=== PATIENT | female | born 1990 | race Caucasian/White ===

== ENCOUNTER 2016-06-07 06:41 | Emergency (ER) | payer MEDICAID ==
[~2016-06-07] VITALS: Ht 157.5 cm; Wt 78.0 kg
[~2016-06-07 06:41] MED LIST: PREN1TAB49 PO
[2016-06-07 06:45] VITALS: Ht 157.5 cm; Wt 78.0 kg
[2016-06-07] MEDS ORDERED: ACETAMINOPHEN 325 MG TAB PO STA (07:05)
[2016-06-07 07:14] LABS: URINE BLOOD (Dip) POC 2+ (NEGATIVE)
--- NOTE | 2016-06-07 07:14 | ERD ---
ER Documentation Chief Complaint Date/Time DATE: 06/07/16 TIME: 07:09 Chief Complaint pt bib self with c/o vag bleeding since this am , 14wks preg HPI This is a 25-year-old female, A0, presenting to emergency department for vaginal bleeding and pelvic cramping starting today. Patient states when she got up this morning she started having vaginal bleeding like her normal menstrual period. No clots or tissue passed. Last menstrual period February. Patient states she is about 14 weeks . No dysuria or hematuria. Has not had any complications with her last 2 births. Patient' OB/ MAIL LIST PROCESSOR is Dr. Trotter. ROS All systems reviewed and are negative except as per history of present illness. Medications Home Meds Active Scripts Acetaminophen* (Tylenol*) 325 Mg Tablet, 1 TAB PO Q6 Y for PAIN AND OR ELEVATED TEMP, #20 TAB Prov:DAVID CLARK NP 06/07/16 Nitrofurantoin Monohyd Macrocr* (Macrobid*) 100 Mg Capsr, 100 MG PO BID for 5 Days, CAP Prov:DAVID CLARK NP 06/07/16 Reported Medications Vits W-Ca,Fe,Fa(<1MG) () 1 Tab Tablet, 1 TAB PO 07/06/11 Allergies Allergies: Coded Allergies: No Known Drug Allergy (Verified Allergy, Mild, 06/07/16) PMhx/Soc Medical and Surgical Hx: pt denies Medical Hx, pt denies Surgical Hx Hx Alcohol Use: No Hx Substance Use: No Hx Tobacco Use: No Smoking Status: Never smoker Physical Exam Vitals Vital Signs Date Time Temp Pulse Resp B/P Pulse Ox O2 Delivery O2 Flow Rate FiO2 06/07/16 06:45 97.9 72 16 123/67 99 Physical Exam Const: No acute distress, alert Head: Atraumatic Eyes: Normal Conjunctiva ENT: Normal External Ears, Nose and Mouth. Neck: Full range of motion..~ No meningismus. Resp: Clear to auscultation bilaterally Cardio: Regular rate and rhythm, no murmurs Abd: Soft, non tender, non distended. Normal bowel sounds Skin: No petechiae or rashes Back: No midline or flank tenderness Ext: No cyanosis, or edema Neur: Awake and alert Psych: Normal Mood and Affect Result Diagram: 06/07/16 0714 Results 24 hrs Laboratory Tests Test 06/07/16 07:14 06/07/16 07:16 Basophils # 0.010^3/ul Basophils % 0.3% Beta HCG, Quantitative 436042.0mIU/ml Eosinophils # 0.510^3/ul Eosinophils % 5.3% Hematocrit 36.0% Hemoglobin 11.6g/dl Lymphocytes # 1.910^3/ul Lymphocytes % 18.6% Mean Corpuscular Hemoglobin 19.8pg Mean Corpuscular Hemoglobin Concent 32.2g/dl Mean Corpuscular Volume 61.3fl Mean Platelet Volume 10.0fl Monocytes # 0.510^3/ul Monocytes % 5.1% Neutrophils # 7.210^3/ul Neutrophils % 70.3% Nucleated Red Blood Cells # 0.010^3/ul Nucleated Red Blood Cells % 0.0/100WBC Platelet Count 09123^3/UL Red Blood Count 5.8710^6/ul Red Cell Distribution Width 19.4% White Blood Count 10.310^3/ul Bedside Urine Blood 2+ Bedside Urine Glucose (UA) Negative Bedside Urine Ketones (LAB) Negative Bedside Urine Leukocyte Esterase (L 1+ Bedside Urine Nitrite (LAB) Positive Bedside Urine Protein (LAB) 1+ Bedside Urine pH (LAB) 7.0 Current Medications Medications (Trade) Dose Ordered Sig/Rosy Route PRN Reason Start Time Stop Time Status Last Admin Dose Admin Acetaminophen (Tylenol Tab) 650 mg ONCE STAT PO 06/07/16 07:05 06/07/16 07:07 DC 06/07/16 07:09 Procedures/MDM ED COURSE: The patient was stable throughout ED course. I kept the patient and/or family informed of laboratory and diagnostic imaging results throughout the ED course. Tylenol given Laboratory CBC hemoglobin 11.6, hematocrit 36.0 Beta-hCG 100,960.0 type and Rh factor O+ Urine dip 1+ leukocyte esterase, positive nitrate, 2+ blood, 1+ protein Imaging OB ultrasound Patient: [place] : 1990 Age: 25 Sex: F MR #: [id number] DOS: 06/07/16 0705 Ordering MD: DAVID CLARK NP Location: [facility] Room/Bed: PROCEDURE: ULTRASOUND OBSTETRICAL CLINICAL INDICATION: 25-year-old female with vaginal bleeding. TECHNIQUE: Multiple sonographic images of the pelvis were obtained. The images were reviewed on a PACS workstation. COMPARISON: None. FINDINGS: There is a single intrauterine gestation. The mean sac diameter is 6.19 cm. There is a pole present with a crown-rump length of 6.29 cm. This yields an estimated gestational age of 12 weeks and 5 days. The estimated date of delivery is December 15, 2016. Cardiac activity is present at 147 beats per minute. There is no evidence for free fluid. The ovaries were not visualized bilaterally. No adnexal masses are noted. IMPRESSION: 1. Single viable intrauterine gestation of approximately 12 weeks 5 days. The estimated date of delivery is December 15, 2016. 2. The ovaries were not visualized. MDM: This is a 25-year-old female presenting to the emergency department for vaginal bleeding and pelvic cramping 1 day. Patient believes she is 14 weeks with last menstrual period 02/16/2016. Patient is a A0. No history of miscarriage or . Labs show hemoglobin 11.6, hematocrit 36.0. Urine is positive for infection. OB ultrasound reviewed by radiologist as single viable intrauterine gestation of approximately 12 weeks 5 days. The estimated date of delivery is December 15, 2016. The ovaries were not visualized. Patient remained hemodynamically stable. No fevers or chills. Patient states vaginal bleeding has decreased since she has been in the ER. Differential diagnosis includes but not limited to spontaneous , ectopic , subchorionic hemorrhage, fibroids, UTI and ovarian cyst. Patient is appropriate for outpatient management will be given prescription for Macrobid and Tylenol. Instructed patient to follow-up with CERTIFIED ALCOHOL COUNSELOR in the next 24-48 hours for reassessment and additional management. Copies of lab tests and ultrasound provided for patient. Return to ED for any high fever, chest pain, difficulty breathing, shortness breath, wheezing, vomiting, diarrhea, abdominal pain or any new or worsening symptoms. Patient verbalizes understanding. All questions answered at discharge. Departure Diagnosis: Primary Impression: Vaginal bleeding in patient at less than 20 weeks gestation Condition: Stable DAVID CLARK NP Jun 07, 2016 07:14
[2016-06-07 07:23] LABS: ADD SCAN DIFF NO
[2016-06-07 07:28] LABS: BASOPHILS % 0.3 % (0.0-2.0); EOSINOPHILS # 0.5 10^3/ul (0.0-0.5); EOSINOPHILS % 5.3 % (0.0-7.0); HEMOGLOBIN 11.6 g/dl (12.0-16.0); LYMPHOCYTES # 1.9 10^3/ul (0.8-2.9); LYMPHOCYTES % 18.6 % (15.0-51.0); MEAN CORPUSCULAR HEMOGLOBIN 19.8 pg (29.0-33.0); MEAN CORPUSCULAR HGB CONC 32.2 g/dl (32.0-37.0); MEAN CORPUSCULAR VOLUME 61.3 fl (82.0-101.0); MONOCYTE # 0.5 10^3/ul (0.3-0.9); MONOCYTES % 5.1 % (0.0-11.0); NEUTROPHIL # 7.2 10^3/ul (1.6-7.5); NEUTROPHILS % 70.3 % (39.0-77.0); PLATELET COUNT 367 10^3/UL (140-415); RED BLOOD COUNT 5.87 10^6/ul (4.20-5.40); RED CELL DISTRIBUTION WIDTH 19.4 % (11.5-14.5); WHITE BLOOD COUNT 10.3 10^3/ul (4.8-10.8)
--- NOTE | 2016-06-07 07:40 | RADRPT ---
PROCEDURE: ULTRASOUND OBSTETRICAL CLINICAL INDICATION: 25-year-old female with vaginal bleeding. TECHNIQUE: Multiple sonographic images of the pelvis were obtained. The images were reviewed on a PACS workstation. COMPARISON: None. FINDINGS: There is a single intrauterine gestation. The mean sac diameter is 6.19 cm. There is a pole p resent with a crown-rump length of 6.29 cm. This yields an estimated gestational age of 12 weeks and 5 days. The estimated date of delivery is December 15, 2016. Cardiac activity is present at 147 be ats per minute. There is no evidence for free fluid. The ovaries were not visualized bilaterally. N o adnexal masses are noted. IMPRESSION: 1. Single viable intrauterine gestation of approximately 12 weeks 5 days. The estimated date of de livery is December 15, 2016. 2. The ovaries were not visualized. .Edgardo Montemayor MD, Date Time Electronically viewed and signed by .Edgardo Montemayor MD, on 06/07/2016 07:39 .M/
[2016-06-07] MEDS ORDERED: ACET325T33 PO (08:37)
[2016-06-07] MEDS ORDERED: NITR-58 PO (08:37)
== END 2016-06-07 08:43 | disposition home or self-care (01) ==
LOC: FTE 06:41
DX: O20.9 Hemorrhage in early pregnancy, unspecified (principal); R10.2 Pelvic and perineal pain; Z3A.12 12 weeks gestation of pregnancy
CPT/HCPCS: 36415; 76801; 81003; 84702; 85025; 86900; 86901; 87086; Z7502; Z7610

== ENCOUNTER 2016-10-08 23:36 | Emergency (ER) | payer MEDICAID ==
[~2016-10-08] VITALS: Ht 157.5 cm; Wt 77.0 kg
[~2016-10-08 23:36] MED LIST changes: +ACET325T33 PO; +NITR-58 PO
[2016-10-08 23:45] VITALS: Ht 157.5 cm; Wt 77.0 kg
[2016-10-09] MEDS ORDERED: AMO500 PO (00:17)
[2016-10-09] MEDS ORDERED: ACET500C5 PO (00:17)
[2016-10-09] MEDS ORDERED: ACETAMINOPHEN 325 MG TAB PO ONE (00:30)
--- NOTE | 2016-10-09 01:39 | ERD ---
ER Documentation Chief Complaint Date/Time DATE: 10/09/16 TIME: 01:37 Chief Complaint toothache x 1 today HPI 25-year-old female comes in with left lower molar pain over the past day. It is achy pain, localized, moderate pain starting this afternoon. She states that she is not sure what to take for pain and therefore comes to the emergency room. She states that she will try to see a dentist tomorrow. This is her second , she is about 32 weeks today and reports that she does have movement that she feels. She denies pelvic pain, vaginal bleeding or vaginal leakage. She denies fevers or chills. ROS All systems reviewed and are negative except as per history of present illness. Medications Home Meds Active Scripts Acetaminophen* (Tylophen*) 500 Mg Capsule, 1 CAP PO Q6H Y for PAIN AND OR ELEVATED TEMP, #20 CAP Prov:CARL GUNTER PA-C 10/09/16 Amoxicillin* (Amoxicillin*) 500 Mg Cap, 500 MG PO TID for 7 Days, CAP Prov:CARL GUNTER PA-C 10/09/16 Acetaminophen* (Tylenol*) 325 Mg Tablet, 1 TAB PO Q6 Y for PAIN AND OR ELEVATED TEMP, #20 TAB Prov:DAVID CLARK NP 06/07/16 Nitrofurantoin Monohyd Macrocr* (Macrobid*) 100 Mg Capsr, 100 MG PO BID for 5 Days, CAP Prov:DAVID CLARK NP 06/07/16 Reported Medications Vits W-Ca,Fe,Fa(<1MG) () 1 Tab Tablet, 1 TAB PO 07/06/11 Allergies Allergies: Coded Allergies: No Known Drug Allergy (Verified Allergy, Mild, 06/07/16) PMhx/Soc Medical and Surgical Hx: pt denies Medical Hx, pt denies Surgical Hx Hx Alcohol Use: No Hx Substance Use: No Hx Tobacco Use: No Smoking Status: Never smoker Physical Exam Vitals Vital Signs Date Time Temp Pulse Resp B/P Pulse Ox O2 Delivery O2 Flow Rate FiO2 10/08/16 23:45 97.1 66 20 120/68 99 Physical Exam General: Well-developed, well-nourished. The patient appears in no acute distress. HEENT: Head is normocephalic, atraumatic. No scleral icterus. Left lower molars tender to palpation, there is no abscess seen, no gingival swelling, no trismus. Oropharynx is normal. Neck: Supple. Nontender. Lungs: Clear to auscultation. Normal air movement. Heart: Regular rate and rhythm. S1 and S2 are normal. No murmurs, gallops, or rubs. Abdomen: Nondistended. Extremities: No clubbing or cyanosis. Moving extremities x 4. No weakness. Neurologic: Alert and oriented 3. No focal deficits. Normal speech and gait. Skin: Normal turgor. No rash or lesions. Results 24 hrs Current Medications Medications (Trade) Dose Ordered Sig/Rosy Route PRN Reason Start Time Stop Time Status Last Admin Dose Admin Acetaminophen (Tylenol Tab) 650 mg ONCE ONCE PO 10/09/16 00:30 10/09/16 00:31 DC 10/09/16 00:24 Procedures/MDM 25-year-old female comes emergency room, she has a dental pain that started this afternoon and likely from caries. No evidence of a tooth abscess, or any airway threatening process, no trismus. She was advised to take Tylenol for pain. Will give amoxicillin however she needs to follow-up with a dentist tomorrow. Departure Diagnosis: Primary Impression: Toothache Condition: Good Patient Instructions: Dental Pain Additional Instructions: Follow-up with a dentist tomorrow. CARL GUNTER PA-C Oct 09, 2016 01:39
== END 2016-10-09 00:34 | disposition home or self-care (01) ==
LOC: FTE 23:36
DX: O99.613 Diseases of the digestive system complicating pregnancy, third trimester (principal); K08.89 Other specified disorders of teeth and supporting structures; Z3A.32 32 weeks gestation of pregnancy
CPT/HCPCS: Z7502; Z7610; 99283

== ENCOUNTER 2016-11-01 11:20 | Emergency (ER) | payer MEDICAID ==
[~2016-11-01] VITALS: Ht 157.5 cm; Wt 77.0 kg
[~2016-11-01 11:20] MED LIST changes: +ACET500C5 PO; +AMO500 PO
[2016-11-01 11:22] VITALS: Ht 157.5 cm; Wt 77.0 kg
[2016-11-01] MEDS ORDERED: HYDR-906 PO (11:48)
[2016-11-01] MEDS ORDERED: PEN500 PO (11:48)
[2016-11-01] MEDS ORDERED: ACETAMINOPHEN 325 MG TAB PO ONE (12:00)
[2016-11-01] MEDS ORDERED: HYDROCODONE/APAP (5/325) TAB PO ONE (12:00)
--- NOTE | 2016-11-01 12:11 | ERD ---
ER Documentation Chief Complaint Date/Time DATE: 11/01/16 TIME: 12:06 Chief Complaint LT SIDE TOOTH PAIN , 34 WEEKS PREG , DENIES ABD PAIN HPI This 25-year-old female is 8 months presents for left tooth 32 pain. This is her wisdom tooth. And hurting on and off for a couple of months. This morning it became much worse. She states that the pain tracks along the left side of her face toward her ear. She has had no fevers or chills. She has no swelling. States that the baby is well and is still taking. She has good care follow-up. She was seen by specialist who told her they cannot perform any procedures on her tooth while she was and they did not prescribe her antibiotics but only told her to take Tylenol. ROS All systems reviewed and are negative except as per history of present illness. Medications Home Meds Active Scripts Hydrocodone/Acetaminophen ([place] 5-325 Tablet) 1 Each Tablet, 1 EACH PO Q12 for SEVERE PAIN LEVEL 7-10, #10 TAB Prov:RUCHI SNOWDEN DO 11/01/16 Penicillin V Potassium* (Penicillin V K*) 500 Mg Tab, 500 MG PO Q8, #30 TAB Prov:RUCHI SNOWDEN DO 11/01/16 Acetaminophen* (Tylophen*) 500 Mg Capsule, 1 CAP PO Q6H Y for PAIN AND OR ELEVATED TEMP, #20 CAP Prov:ACRL GUNTER PA-C 10/09/16 Amoxicillin* (Amoxicillin*) 500 Mg Cap, 500 MG PO TID for 7 Days, CAP Prov:CARL GUNTER PA-C 10/09/16 Acetaminophen* (Tylenol*) 325 Mg Tablet, 1 TAB PO Q6 Y for PAIN AND OR ELEVATED TEMP, #20 TAB Prov:DAVID CLARK NP 06/07/16 Nitrofurantoin Monohyd Macrocr* (Macrobid*) 100 Mg Capsr, 100 MG PO BID for 5 Days, CAP Prov:DAVID CLARK NP 06/07/16 Reported Medications Vits W-Ca,Fe,Fa(<1MG) () 1 Tab Tablet, 1 TAB PO 07/06/11 Allergies Allergies: Coded Allergies: No Known Drug Allergy (Verified Allergy, Mild, 06/07/16) PMhx/Soc Hx Alcohol Use: No Hx Substance Use: No Hx Tobacco Use: No Physical Exam Vitals Vital Signs Date Time Temp Pulse Resp B/P Pulse Ox O2 Delivery O2 Flow Rate FiO2 11/01/16 11:22 98.1 86 18 132/70 98 Physical Exam Const: [] No distress, pleasant Head: Atraumatic Eyes: Normal Conjunctiva ENT: Normal External Ears, Nose and Mouth. Left tympanic membrane within normal limits, mucous membranes moist. Dentition shows the patient does still have her wisdom teeth and tooth #32 has normal pink gingiva abutting the posterior side. No obvious caries. No signs of abscess or fluctuance. No facial swelling. Neck: Full range of motion..~ No meningismus. No adenopathy, no swelling Results 24 hrs Current Medications Medications (Trade) Dose Ordered Sig/Rosy Route PRN Reason Start Time Stop Time Status Last Admin Dose Admin Acetaminophen/ Hydrocodone Bitart ([place] (5/325)) 1 tab ONCE ONCE PO 11/01/16 12:00 11/01/16 12:04 DC Acetaminophen (Tylenol Tab) 650 mg ONCE ONCE PO 11/01/16 12:00 11/01/16 12:01 DC Procedures/MDM female experiencing more severe dental pain. With pain along her face toward her ear is possible that she has an infection. Letting infection spread in the near term patient is not advisable. Going to discharge her with penicillin VK. Also giving her 640 mg Tylenol. Am going to discharge with 10 Nokomis pills 5/325 directions to take them only twice a day for very severe pain. She understands this and says that she will take them sparingly. Primary care and dental follow-up is advised. Return precautions to the ER as well for any fevers. No reason to suspect the baby is having any distress. Departure Diagnosis: Primary Impression: Toothache Condition: Stable Patient Instructions: Dental Pain Additional Instructions: Call your primary care doctor TOMORROW for an appointment during the next 2-3 days.See the doctor sooner or return here if your condition worsens before your appointment time. RUCHI SNOWDEN DO Nov 01, 2016 12:10
== END 2016-11-01 12:12 | disposition home or self-care (01) ==
LOC: FTE 11:20
DX: O99.613 Diseases of the digestive system complicating pregnancy, third trimester (principal); K08.89 Other specified disorders of teeth and supporting structures; Z3A.34 34 weeks gestation of pregnancy
CPT/HCPCS: Z7502; Z7610; 99284

== ENCOUNTER 2016-11-10 19:36 | Outpatient (CLI) | payer MEDICAID ==
[~2016-11-10] VITALS: Ht 157.5 cm; Wt 77.3 kg
[~2016-11-10 19:36] MED LIST changes: +HYDR-906 PO; +PEN500 PO
[2016-11-10 20:08] VITALS: BP 121/72; PULSE 65; RESP 18; Ht 157.5 cm; Wt 77.3 kg
[2016-11-10] MEDS ORDERED: LACTATED RINGER'S 1,000 ML IV SCH (20:30)
[2016-11-10 21:22] LABS: BASOPHILS % 0.3 % (0.0-2.0); EOSINOPHILS # 0.3 10^3/ul (0.0-0.5); HEMATOCRIT 31.5 % (37.0-47.0); LYMPHOCYTES # 2.4 10^3/ul (0.8-2.9); LYMPHOCYTES % 23.1 % (15.0-51.0); MEAN CORPUSCULAR HEMOGLOBIN 20.1 pg (29.0-33.0); MEAN CORPUSCULAR HGB CONC 31.7 g/dl (32.0-37.0); MEAN CORPUSCULAR VOLUME 63.4 fl (82.0-101.0); MEAN PLATELET VOLUME 9.6 fl (7.4-10.4); MONOCYTE # 0.6 10^3/ul (0.3-0.9); MONOCYTES % 5.3 % (0.0-11.0); NEUTROPHIL # 7.2 10^3/ul (1.6-7.5); NEUTROPHILS % 67.9 % (39.0-77.0); PLATELET COUNT 304 10^3/UL (140-415); RED BLOOD COUNT 4.97 10^6/ul (4.20-5.40); RED CELL DISTRIBUTION WIDTH 18.7 % (11.5-14.5); WHITE BLOOD COUNT 10.6 10^3/ul (4.8-10.8)
[2016-11-10 21:35] LABS: ADD UMIC YES; UR ASCORBIC ACID NEGATIVE (NEGATIVE); UR BACTERIA FEW /HPF (NONE SEEN); UR BILIRUBIN (Dip) NEGATIVE (NEGATIVE); UR BLOOD (Dip) NEGATIVE (NEGATIVE); UR CLARITY CLOUDY (CLEAR); UR COLOR AMBER (YELLOW); UR GLUCOSE (Dip) NEGATIVE (NEGATIVE); UR KETONES (Dip) 1+ mg/dL (NEGATIVE); UR LEUKOCYTE ESTERASE (Dip) 3+ Leu/ul (NEGATIVE); UR MUCUS MANY /HPF (NONE SEEN); UR NITRITE (Dip) NEGATIVE (NEGATIVE); UR RBC 6 /HPF (0-5); UR SPECIFIC GRAVITY (Dip) 1.021 (1.003-1.030); UR SQUAMOUS EPITHELIAL CELL MODERATE /HPF (FEW); UR TOTAL PROTEIN (Dip) 1+ mg/dl (NEGATIVE); UR UROBILINOGEN (Dip) 1+ mg/dL (NEGATIVE)
--- NOTE | 2016-11-10 23:23 | PN ---
Triage Information Date/Time 11/10/2309 Weeks of Gestation 35w5d : 3 Para: 2 Diabetes: none Hypertention: none Additional information x2 previous section R/O labor Objective Vital Signs Date Time Temp Pulse Resp B/P Pulse Ox O2 Delivery O2 Flow Rate FiO2 11/10/16 20:08 98.4 65 18 121/72 Room Air Heart Rate: 120's Contractions: >10 Minutes Apart Exam vE closed /long/-3 Results/Medications Result Diagram: 11/10/162052 Results 24 hrs Laboratory Tests Test 11/10/16 20:53 White Blood Count 10.6 Red Blood Count 4.97 Hemoglobin 10.0 L Hematocrit 31.5 L Mean Corpuscular Volume 63.4 L Mean Corpuscular Hemoglobin 20.1 L Mean Corpuscular Hemoglobin Concent 31.7 L Red Cell Distribution Width 18.7 H Platelet Count 304 Mean Platelet Volume 9.6 Neutrophils % 67.9 Lymphocytes % 23.1 Monocytes % 5.3 Eosinophils % 3.0 Basophils % 0.3 Nucleated Red Blood Cells % 0.0 Neutrophils # 7.2 Lymphocytes # 2.4 Monocytes # 0.6 Eosinophils # 0.3 Basophils # 0.0 Nucleated Red Blood Cells # 0.0 Urine Color JESSICA Urine Clarity CLOUDY A Urine pH 6.0 Urine Specific [place] 1.021 Urine Ketones 1+ H Urine Nitrite NEGATIVE Urine Bilirubin NEGATIVE Urine Urobilinogen 1+ H Urine Leukocyte Esterase 3+ H Urine Microscopic RBC 6 H Urine Microscopic WBC 27 H Urine Squamous Epithelial Cells MODERATE Urine Bacteria FEW A Urine Mucus MANY A Urine Hemoglobin NEGATIVE Urine Glucose NEGATIVE Urine Total Protein 1+ H Medications Current Medications Lactated Ringer's (Lr) 1,000 ml @ 150 mls/hr Q6H40M IV Last administered on t 20:53; Admin Dose 150 MLS/HR; Start 11/10/16 at 20:30 Imaging Results bpp 8/8 Assessment/Plan IUP 35w5d UTI resolved uc plan discharge home with RX cephalexin 500mg q6hr for 7days DANTE JENNINGS MD Nov 10, 2016 23:23
--- NOTE | 2016-11-10 23:38 | RADRPT ---
PROCEDURE: OB ultrasound for biophysical profile CLINICAL INDICATION: Contractions. TECHNIQUE: Multiple sonographic images of the pelvis were obtained. Transabdominal view of the gr avid uterus are available for review. The images were reviewed on a PACS workstation. COMPARISON: None FINDINGS: breathing movement = 2/2 tone = 2/2 motion = 2/2 Amniotic fluid = 2/2 SONYA = 15.1 cm Single live intrauterine in cephalic presentation with cardiac activity (159 bpm). Posterior placenta, grade 2. IMPRESSION: 1. Single viable intrauterine gestation. 2. Biophysical profile = 8/8. 3. SONYA = 15.1 cm. RPTAT: HTAR .Masoud House MD, Date Time Electronically viewed and signed by .Masoud House MD, MD on 11/10/2016 23:38 .R/
[2016-11-10] MEDS ORDERED: SOD CHLORIDE 0.9% 1,000 ML IV SCH (23:57)
[2016-11-11] MEDS ORDERED: CEFTRIAXONE 1 GM INJ IVPB ONE
[2016-11-11] MEDS ORDERED: TERBUTALINE 1 MG/ML INJ SC ONE
[2016-11-11] MEDS ORDERED: CEFTRIAXONE 1 GM/NS 50 ML IVPB SCH (00:30)
--- NOTE | 2016-11-11 06:14 | TRIAGE ---
OB Triage Datetime Report Generated by CPN: 11/11/2016 06:14 Datetime: 11/11/2016 01:00 Labor Evaluation Frequency: 1/HR Monitor Mode: External Duration (sec)2399: 60 Quality: Mild Heart Rate FHR Baseline Rate: 115 Monitor Mode: External US FHR Baseline Changes: No Baseline Change Variability: Moderate 6-25 bpm Accelerations: 15X15 Decelerations: None Category: Category I Datetime: 11/11/2016 00:00 Labor Evaluation Frequency: IRREGULAR Monitor Mode: External Duration (sec)2399: 60-100 Quality: Mild Pattern: Normal: <= 5 Contractions in 10 Minutes Resting Tone [place]: Relaxed Heart Rate FHR Baseline Rate: 125 Monitor Mode: External US FHR Baseline Changes: No Baseline Change Variability: Moderate 6-25 bpm Accelerations: 15X15 Decelerations: None Category: Category I Datetime: 11/10/2016 23:00 Labor Evaluation Frequency: IRREGULAR Monitor Mode: External Duration (sec)2399: 60-100 Quality: Mild Pattern: Normal: <= 5 Contractions in 10 Minutes Resting Tone [place]: Relaxed Heart Rate FHR Baseline Rate: 125 Monitor Mode: External US FHR Baseline Changes: No Baseline Change Variability: Moderate 6-25 bpm Accelerations: 15X15 Decelerations: None Category: Category I Datetime: 11/10/2016 22:00 Labor Evaluation Frequency: IRREGULAR Monitor Mode: External Duration (sec)2399: 60 Quality: Mild Pattern: Normal: <= 5 Contractions in 10 Minutes Resting Tone [place]: Relaxed Heart Rate FHR Baseline Rate: 125 Monitor Mode: External US FHR Baseline Changes: No Baseline Change Variability: Moderate 6-25 bpm Accelerations: 15X15 Decelerations: None Category: Category I Datetime: 11/10/2016 21:00 Labor Evaluation Frequency: 8 Monitor Mode: External Duration (sec)2399: 60 Quality: Mild Pattern: Normal: <= 5 Contractions in 10 Minutes Resting Tone [place]: Relaxed Heart Rate FHR Baseline Rate: 125 Monitor Mode: External US FHR Baseline Changes: No Baseline Change Variability: Moderate 6-25 bpm Accelerations: 15X15 Decelerations: None Category: Category I Datetime: 11/10/2016 20:29 Stage of : INFOPRMATION ON U/S ON WRONG PT. FHR Baseline Changes: No Baseline Change Datetime: 11/10/2016 20:20 Vaginal Exam Dilatation (cms): 0.0 Effacement (%): 0 Station: -3 Exam By: Nicolas SCHNEIDER RN Vaginal Bleeding: None Cervix, Consistency: Firm Cervix, Position: Posterior Datetime: 11/10/2016 19:49 EGA: 35.5 Datetime: 11/10/2016 19:40 Stage of : OB Triage Time of Arrival: 11/10/2016 19:30 Arrived By: Wheelchair Arrived From: Home Chief Complaint: CONTRACTIONS SINCE 1400 Movement: Present Time Contractions Began: 11/10/2016 14:00 Rupture of Membranes: Denies Vaginal Bleeding: None Vaginal Discharge: Denies Recent Sexual Intercouse: Denies Abdominal Trauma: Not Applicable Patient Complaints: None (Annotations: Data stored by CPN on behalf of user) Time Provider Notified: 11/10/2016 20:35 Provider Notified: DICK Initial Plan: CALL MD EFM Maternal Assessment Level of Consciousness: Fully Conscious DTR's/Clonus: DTRs 2+; No Clonus Headache: Denies Blurred Vision: No Respiratory Effort: Unlabored; Regular Rhythm; Equal Expansion Breath Sounds, Left: Clear and Equal Breath Sounds, Right: Clear and Equal Nausea/Vomiting: Denies RUQ Epigastric Pain: Denies Lower Extremities Edema: None Degree: None Upper Extremities Edema: None Degree: None Facial Edema: None Temperature Route: Oral Fall Risk Assessment History of Falling: (0) No Secondary Diagnosis: (0) No Ambulatory Aid: (0) Bedrest/Nurse Assist IV Therapy: (0) No Gait: (0) Normal/Bedrest/Immobile Mental Status: (0) Oriented to Own Ability Fall Score: 0 Fall Risk Score Definition: No Risk: No action required Monitor Mode: External Monitor Mode: External US Pain Assessment Pain Scale: 6 Pain Presence: Intermittent Pain Type: Contraction Pain Location: Abdomen; Back
== END 2016-11-11 01:13 | disposition home or self-care (01) ==
LOC: OBT 19:36 → L-D 19:38 → OBT 11-11 01:13
PROVIDERS: ATTEND Obstetrics & Gynecology
DX: O23.43 Unspecified infection of urinary tract in pregnancy, third trimester (principal); Z3A.35 35 weeks gestation of pregnancy; O34.219 Maternal care for unspecified type scar from previous cesarean delivery
CPT/HCPCS: 36415; 76818; 81001; 85025; 87086; 96360; 96361; 96372; 96375; J0696; J3105; J7030; J7120; Z7500; G0463

== ENCOUNTER 2016-11-21 20:30 | Outpatient (CLI) | payer MEDICAID ==
[~2016-11-21 20:30] MED LIST changes: -ACET325T33 PO; -ACET500C5 PO; -AMO500 PO; -HYDR-906 PO; -NITR-58 PO; -PEN500 PO
[2016-11-21] MEDS ORDERED: TERBUTALINE 1 MG/ML INJ SC ONE (22:00)
[2016-11-21 22:44] LABS: ADD UMIC YES; UR AMORPHOUS CRYSTAL FEW /HPF (NONE SEEN); UR ASCORBIC ACID NEGATIVE (NEGATIVE); UR BILIRUBIN (Dip) NEGATIVE (NEGATIVE); UR BLOOD (Dip) 1+ mg/dL (NEGATIVE); UR CLARITY CLOUDY (CLEAR); UR COLOR YELLOW (YELLOW); UR GLUCOSE (Dip) NEGATIVE (NEGATIVE); UR KETONES (Dip) NEGATIVE (NEGATIVE); UR LEUKOCYTE ESTERASE (Dip) 1+ Leu/ul (NEGATIVE); UR NITRITE (Dip) NEGATIVE (NEGATIVE); UR RBC 9 /HPF (0-5); UR SPECIFIC GRAVITY (Dip) 1.012 (1.003-1.030); UR SQUAMOUS EPITHELIAL CELL FEW /HPF (FEW); UR TOTAL PROTEIN (Dip) NEGATIVE (NEGATIVE); UR UROBILINOGEN (Dip) NEGATIVE (NEGATIVE)
[2016-11-21 22:49] LABS: BASOPHILS % 0.2 % (0.0-2.0); EOSINOPHILS # 0.3 10^3/ul (0.0-0.5); EOSINOPHILS % 2.7 % (0.0-7.0); HEMATOCRIT 30.9 % (37.0-47.0); HEMOGLOBIN 10.1 g/dl (12.0-16.0); LYMPHOCYTES # 2.5 10^3/ul (0.8-2.9); LYMPHOCYTES % 25.2 % (15.0-51.0); MEAN CORPUSCULAR HEMOGLOBIN 20.4 pg (29.0-33.0); MEAN CORPUSCULAR HGB CONC 32.7 g/dl (32.0-37.0); MEAN CORPUSCULAR VOLUME 62.4 fl (82.0-101.0); MEAN PLATELET VOLUME 9.7 fl (7.4-10.4); MONOCYTE # 0.5 10^3/ul (0.3-0.9); MONOCYTES % 5.1 % (0.0-11.0); NEUTROPHIL # 6.7 10^3/ul (1.6-7.5); NEUTROPHILS % 66.4 % (39.0-77.0); PLATELET COUNT 304 10^3/UL (140-415); RED BLOOD COUNT 4.95 10^6/ul (4.20-5.40); RED CELL DISTRIBUTION WIDTH 17.2 % (11.5-14.5); WHITE BLOOD COUNT 10.1 10^3/ul (4.8-10.8)
--- NOTE | 2016-11-21 23:23 | RADRPT ---
PROCEDURE: US OB biophysical profile. CLINICAL INDICATION: decreased movements TECHNIQUE: Multiple sonographic images of the pelvis were obtained. The images were reviewed on a PACS workstation. COMPARISON: 11/10/2016 FINDINGS: There is a single viable intrauterine gestation. Cardiac activity is present with 126 beats per min [place]. There is a vertex presentation. The placenta is posterior, grade 1 appearance. There is no evidence of placenta previa or abruption. There is a normal amount of amniotic fluid with an SONYA = 15.3 cm. Biophysical profile: movement 2/2 tone 2/2. breathing 2/2 SONYA 2/2 Total 11/18 IMPRESSION: Normal biophysical profile. RPTAT: HIKT . .Ryan Herr MD, MD Date Time Electronically viewed and signed by .Ryan Herr MD, on 11/21/2016 23:23 .T/
[2016-11-21 23:31] LABS: ALBUMIN 3.4 g/dl (3.3-4.9); ALBUMIN/GLOBULIN RATIO 1.13; BILIRUBIN,INDIRECT 0.5 mg/dl (0-1.1); BILIRUBIN,TOTAL 0.5 mg/dl (0.2-1.3); CALCIUM 9.1 mg/dl (8.4-10.2); CREATININE 0.6 mg/dl (0.44-1.00); POTASSIUM 3.3 mmol/L (3.5-5.1); TOTAL PROTEIN 6.4 g/dl (6.1-8.1); URIC ACID 4.1 mg/dl (3.1-7.9)
--- NOTE | 2016-11-22 00:22 | QN ---
Documentation Comment ipu 37 weeks co of ucx vss exam wnl a/p iup 37 weeks f false labor dc [place] AMBROSIO PETERSEN MD Nov 22, 2016 00:22
--- NOTE | 2016-11-22 01:43 | TRIAGE ---
OB Triage Datetime Report Generated by CPN: 11/22/2016 01:43 Datetime: 11/21/2016 23:29 Vaginal Exam Membrane Status: Intact Datetime: 11/11/2016 01:30 Time of Arrival: 11/21/2016 20:05 EGA: 37.2 Arrived By: Wheelchair Arrived From: Home Chief Complaint: w/ hx c/s x2 c/o ucs Movement: Present Contractions: Regular Time Contractions Began: 11/21/2016 14:00 Contractions: Q5 Rupture of Membranes: Denies Vaginal Bleeding: None Vaginal Discharge: Denies Recent Sexual Intercouse: Denies Abdominal Trauma: Not Applicable Patient Complaints: Contractions Time Provider Notified: 11/21/2016 21:35 Provider Notified: Dr Doshi Initial Plan: EFM,SVE,PO hydration, Terb,cbc,ua,cmp,bpp Datetime: 11/10/2016 19:49 EGA: 35.5 Datetime: 11/10/2016 19:40 Fall Risk Assessment Fall Score: 0 Fall Risk Score Definition: No Risk: No action required
== END 2016-11-22 01:35 | disposition home or self-care (01) ==
LOC: OBT 20:30 → L-D 20:31 → OBT 11-22 01:35
PROVIDERS: ATTEND Obstetrics & Gynecology
DX: O62.9 Abnormality of forces of labor, unspecified (principal); Z3A.37 37 weeks gestation of pregnancy
CPT/HCPCS: 76818; 80053; 81001; 84560; 85025; J3105; Z7500; G0463

== ENCOUNTER 2016-12-11 10:50 | Inpatient (IN) | payer MEDICAID ==
[~2016-12-11] VITALS: Ht 157.5 cm; Wt 72.7 kg
[2016-12-11] MEDS ORDERED: MISOPROSTOL 200 MCG TAB PR PRN ×2 (11:00→18:30)
[2016-12-11] MEDS ORDERED: CEFAZOLIN 2 GM/50 ML (PMX) 50 ML IVPB SCH (11:00)
[2016-12-11] MEDS ORDERED: OXYTOCIN 30 UNITS/LR 500 ML IV PRN ×2 (11:00→18:30)
[2016-12-11] MEDS ORDERED: METHYLERGONOVINE 0.2 MG INJ IM PRN ×2 (11:00→18:30)
[2016-12-11] MEDS ORDERED: CARBOPROST 250 MCG INJ IM PRN ×2 (11:00→18:30)
[2016-12-11] MEDS: LACTATED RINGER'S 1,000 ML IV SCH ×2 (11:36→12:13)
[2016-12-11 11:38] VITALS: Ht 157.5 cm; Wt 72.7 kg
[2016-12-11 11:40] VITALS: BP 118/73; PULSE 71; RESP 20
[2016-12-11] MEDS ORDERED: OXYTOCIN 30 UNITS/LR 500 ML IV SCH (12:00)
[2016-12-11 12:08] LABS: BASOPHILS % 0.4 % (0.0-2.0); EOSINOPHILS # 0.1 10^3/ul (0.0-0.5); EOSINOPHILS % 1.2 % (0.0-7.0); HEMATOCRIT 33.5 % (37.0-47.0); HEMOGLOBIN 11.1 g/dl (12.0-16.0); LYMPHOCYTES # 1.8 10^3/ul (0.8-2.9); LYMPHOCYTES % 17.9 % (15.0-51.0); MEAN CORPUSCULAR HEMOGLOBIN 20.4 pg (29.0-33.0); MEAN CORPUSCULAR HGB CONC 33.1 g/dl (32.0-37.0); MEAN CORPUSCULAR VOLUME 61.5 fl (82.0-101.0); MEAN PLATELET VOLUME 10.1 fl (7.4-10.4); MONOCYTE # 0.5 10^3/ul (0.3-0.9); MONOCYTES % 5.4 % (0.0-11.0); NEUTROPHILS % 74.7 % (39.0-77.0); PLATELET COUNT 317 10^3/UL (140-415); RED BLOOD COUNT 5.45 10^6/ul (4.20-5.40); RED CELL DISTRIBUTION WIDTH 17.3 % (11.5-14.5); WHITE BLOOD COUNT 9.9 10^3/ul (4.8-10.8)
[2016-12-11 12:25] LABS: INR 0.93; PROTIME 12.5 Sec (12.2-14.2)
[2016-12-11 12:26] LABS: PARTIAL THROMBOPLASTIN TIME 28.3 Sec (25.0-35.0)
[2016-12-11] MEDS ORDERED: ONDANSETRON 4 MG INJ IV STA (13:47)
[2016-12-11] MEDS ORDERED: CITRIC ACID/NA CITRATE 30 ML CUP PO ONE (14:00)
[2016-12-11] MEDS ORDERED: morphine SULFATE/PF (10 MG/10 ML) INJ ONE (14:16)
[2016-12-11] MEDS ORDERED: FENTAnyl 50 MCG/ML VIAL ONE (14:16)
[2016-12-11] MEDS ORDERED: OXYTOCIN 10 UNIT INJ ONE (14:16)
[2016-12-11] MEDS ORDERED: METOCLOPRAMIDE 10 MG INJ ONE (14:16)
[2016-12-11] MEDS ORDERED: PHENYLephrine (100 MCG/ML) 5ML SYG ONE (14:16)
[2016-12-11] MEDS ORDERED: ALBUTEROL 0.083% (NEB) 2.5 MG/3 ML AMP HHN PRN (15:00)
[2016-12-11] MEDS ORDERED: morphine 2 MG INJ IV PRN (15:00)
[2016-12-11] MEDS ORDERED: NALOXONE (0.4 MG/ML) INJ IV PRN (15:00)
[2016-12-11] MEDS ORDERED: OXYCODONE/ACETAMINOPHEN (5/325) TAB PO PRN ×4 (15:00→18:30)
[2016-12-11] MEDS ORDERED: KETOROLAC 30 MG INJ IV PRN (15:00)
[2016-12-11] MEDS ORDERED: ZOLPIDEM 5 MG TAB PO PRN ×2 (15:00→18:30)
[2016-12-11] MEDS ORDERED: HYDROmorphONE (0.2 MG/ML) 10ML SYG IV PRN ×3 (15:00)
[2016-12-11] MEDS ORDERED: NALBUPHINE HCL (10 MG/1 ML) INJ IV PRN (15:00)
[2016-12-11] MEDS ORDERED: FENTAnyl 50 MCG/ML VIAL IV PRN ×3 (15:00)
[2016-12-11] MEDS ORDERED: ONDANSETRON 4 MG INJ IV PRN ×3 (15:00→18:30)
[2016-12-11] MEDS ORDERED: EPHEDrine SULFATE 50 MG/5 ML SYG IV PRN (15:00)
[2016-12-11] MEDS ORDERED: MEPERIDINE 25 MG INJ IV PRN (15:00)
[2016-12-11] MEDS ORDERED: TRIMETHOBENZAMIDE 100 MG/ML VIAL IM PRN ×2 (15:00)
[2016-12-11] MEDS ORDERED: LABETALOL HCL 20MG INJ IV PRN (15:00)
[2016-12-11] MEDS ORDERED: IPRATROPIUM (NEB) 0.5 MG/2.5 ML AMP HHN PRN (15:00)
[2016-12-11] MEDS ORDERED: morphine 4 MG/ML VIAL IV PRN (15:00)
[2016-12-11] MEDS ORDERED: DIPHENHYDRAMINE 50 MG INJ IV PRN ×3 (15:00→18:30)
[2016-12-11] MEDS ORDERED: hydrALAzine 20 MG INJ IV PRN (15:00)
[2016-12-11] MEDS ORDERED: DEXAMETHASONE 4 MG/ML 1 ML INJ ONE (15:04)
[2016-12-11 18:00] VITALS: BP 129/84; PULSE 74; RESP 18
[2016-12-11] MEDS ORDERED: LANOLIN 7 GM TUBE TOP PRN (18:30)
[2016-12-11 18:45] VITALS: BP 122/82; PULSE 60; RESP 18
[2016-12-11 19:45] VITALS: BP 129/86; PULSE 60; RESP 18
--- NOTE | 2016-12-11 19:55 | HP ---
Date/Time of Note Date/Time of Note DATE: 12/11/16 TIME: 19:44 OB - History Hx of Present Free Text/Dictation 25 y.o at 39weeks who had x2 previous c/s here for repeat c/s and tubal sterilization. Her course started when she was 16w5d by date which wasnt comparable with date which was 4weeks smaller . and had x1 UTI . desire to have tubal sterilization also. prepare for RC/s and BTL Chief Complaint: for RC/S and BTL Estimated Due Date: Dec 18, 2016 : 3 Para: 2 Spontaneous : 0 Therapeutic : 0 Care: Good Care Ultrasounds: Normal mid trimester US Obstetrical Complications: None Medical Complications: None Past Family/Social History * Past Medical, Surgical, Family and Obstetric Histories reviewed from chart. Blood Type: O+ Rubella: immune RPR/VDRL: Negative GBS Status: Negative HBsAG: Negative OB Admission Exam Vital Signs Vital Signs Vital Signs Date Time Temp Pulse Resp B/P Pulse Ox O2 Delivery O2 Flow Rate FiO2 12/11/16 18:45 98.0 60 18 122/82 Room Air 12/11/16 11:40 98 Physical Exam HEENT: WNL Heart: Rhythm Normal Lungs: Clear, Equal Abdomen: WNL Extremities: Normal Reflexes: Normal Cervical Dilatation: None Effacement: 50% Station: -3 Membranes: Intact Amniotic Fluid: Unevaluable Heart Rate: 140's Accelerations: Accelerations Present Decelerations: No Decelerations Varibility: Moderate Contractions on Admission: >10 Minutes Apart Intensity: Mild Last 72 hours Lab Results CBC & BMP 12/11/16 11:20 OB Assessment/Plan Reason for admission: section, other (tubal sterilization) Plan: Section, Other (bilateral salphingectomy) DANTE JENNINGS MD Dec 11, 2016 19:54
--- NOTE | 2016-12-11 20:13 | OPR ---
Operative Report Planned Procedure Procedure date Dec 11, 2016 Procedure(s) Repeat low transverse section and BTL Performed by: DANTE JENNINGS MD Assisting provider: JANE DE LA ROSA MD Anesthesiologist: Jacobo Hull M.D. Pre-procedure diagnosis IUP [id number] with X2 previous section desire for tubal sterilization Anesthesia Type: spinal Procedure Description Under satisfactory [] anesthesia, the patient was prepped and draped and placed in a supine position, tilted to the left. Pfannenstiel incision was made, carried through the subcutaneous tissue. Bleeders brought under control with electrocautery. Fascia incised to the length of the incision. Rectus muscles from the fascia, divided midline. Peritoneum exposed, entered through a transverse incision. Exploration of abdomen revealed gravid uterus. Transverse incision was made in the lower segment of the uterus. Amniotic sac ruptured.clear [] amniotic fluid noted. [normal male was born from [place] with gentle tracion with kiwi X12sec ] Nasal oropharyngeal suction was performed.after delayed cord clamping The baby was handed to the team for immediate attention. The placenta was delivered manually intact. Uterine cavity was cleaned with dry sponge . Uterus closed in 2 layers using #1 ch gut and 0 ch gut[] in continuous fashion. Rt follopian tube were grasped with demsond wnd distal portion of follopian tube wer doubly ligated with 0 plain gut and tube was excised and same procedure was done on left follopian tube. Peritoneal cavity irrigated with warm saline. Sponge, needle and instrument count reported to be correct. Abdominal peritoneum closed with []00ch gut continuously. Rectus muscle approximated with [00ch gut]. Fascia closed with [# 1 vicryl cont. subcut approximated with 00 plain , and skin closed with insorb. Estimated blood loss 600[]mL. Urine bag contained []300mL of urine Post-Procedure Post-procedure diagnosis delivered normal male Findings: Live Baby male[], Apgars []9 and [],9 weight [7lb1oz], position []OA , [] presentationvertex[]cord. Complications: None Pt Condition post procedure: stable Disposition: PACU Physician Certification I, the undersigned physician, hereby certify that I have discussed the procedure described in this consent form with this patient (or the patient's legal outbound telemarketing representative), including: * The risk and benefits of the procedure; * Any adverse reactions that may reasonably be expected to occur; * Any alternative efficacious methods of treatment which may be medically viable ; * The potential problems that may occur during recuperation; * Potential for blood transfusion and associated risks/benefits; and * Any research or economic interest I may have regarding this treatment. I further certify that the patient/legally responsible person was encouraged to ask question and that all questions were answered. DANTE JENNINGS MD Dec 11, 2016 20:12
[2016-12-11 21:00] VITALS: BP 128/70; PULSE 62; RESP 18
[2016-12-11] MEDS: SENNA/DOCUSATE NA (8.6MG/50MG) TAB PO SCH (21:00)
[2016-12-12 00:30] VITALS: BP 126/70; PULSE 68; RESP 18
[2016-12-12] MEDS: LACTATED RINGER'S 1,000 ML IV SCH ×3 (00:39→14:33)
[2016-12-12 03:55] VITALS: BP 108/59; PULSE 59; RESP 18
[2016-12-12 07:30] VITALS: BP 107/64; PULSE 55; RESP 16
[2016-12-12] MEDS: SENNA/DOCUSATE NA (8.6MG/50MG) TAB PO SCH ×2 (08:40→20:40)
[2016-12-12 09:13] LABS: BASOPHILS % 0.1 % (0.0-2.0); EOSINOPHILS % 0.1 % (0.0-7.0); HEMATOCRIT 28.4 % (37.0-47.0); HEMOGLOBIN 8.9 g/dl (12.0-16.0); LYMPHOCYTES # 1.9 10^3/ul (0.8-2.9); MEAN CORPUSCULAR HEMOGLOBIN 19.5 pg (29.0-33.0); MEAN CORPUSCULAR HGB CONC 31.3 g/dl (32.0-37.0); MEAN CORPUSCULAR VOLUME 62.1 fl (82.0-101.0); MEAN PLATELET VOLUME 10.4 fl (7.4-10.4); MONOCYTE # 0.9 10^3/ul (0.3-0.9); MONOCYTES % 6.1 % (0.0-11.0); NEUTROPHILS % 80.3 % (39.0-77.0); PLATELET COUNT 269 10^3/UL (140-415); RED BLOOD COUNT 4.57 10^6/ul (4.20-5.40); RED CELL DISTRIBUTION WIDTH 17.5 % (11.5-14.5); WHITE BLOOD COUNT 14.4 10^3/ul (4.8-10.8)
[2016-12-12 15:55] VITALS: BP 114/73; PULSE 78; RESP 16
[2016-12-12] MEDS: IBUPROFEN 600 MG TAB PO SCH ×2 (18:00→23:34)
--- NOTE | 2016-12-12 18:06 | PN ---
Date/Time of Note Date/Time of Note DATE: 12/12/16 TIME: 18:03 OB Subjective Subjective Subjective passing flaus OB Objective Objective Objective vss afebile abdomen soft wound dry lochia min calf no tenderness OB Assessment/Plan Other Assessment: stable POD #! Other plan: as ordered DANTE JENNINGS MD Dec 12, 2016 18:06
[2016-12-12 20:00] VITALS: BP 108/57; PULSE 69; RESP 19
[2016-12-13 03:30] VITALS: BP 114/66; PULSE 68; RESP 19
[2016-12-13] MEDS: IBUPROFEN 600 MG TAB PO SCH ×4 (05:43→23:11)
[2016-12-13 09:20] VITALS: BP 117/66; PULSE 57; RESP 18
[2016-12-13] MEDS: SENNA/DOCUSATE NA (8.6MG/50MG) TAB PO SCH ×2 (09:42→23:11)
--- NOTE | 2016-12-13 10:21 | PN ---
Date/Time of Note Date/Time of Note DATE: 12/13/16 TIME: 10:18 OB Subjective Subjective Subjective no b.m no c/o OB Objective Objective Objective vss afebrile abdomen soft wound dry lochia min calf neg for tenderness OB Assessment/Plan Other Assessment: satisfactory Other plan: d/s home in am DANTE JENNINGS MD Dec 13, 2016 10:21
[2016-12-13 16:05] VITALS: BP 131/61; PULSE 65; RESP 18
[2016-12-13 20:00] VITALS: BP 113/62; PULSE 61; RESP 20
[2016-12-14 03:53] VITALS: BP 104/52; PULSE 68; RESP 20
[2016-12-14] MEDS: IBUPROFEN 600 MG TAB PO SCH ×3 (05:26→17:53)
[2016-12-14 08:14] VITALS: BP 131/70; PULSE 55; RESP 18
[2016-12-14] MEDS ORDERED: DIPHTH/TET/ACEL PERTUSS (ADULT) 0.5 ML VIAL IM* ONE (09:00)
[2016-12-14] MEDS: SENNA/DOCUSATE NA (8.6MG/50MG) TAB PO SCH (09:35)
[2016-12-14 16:06] VITALS: BP 118/52; PULSE 120; PULSE 59; RESP 18
--- NOTE | 2016-12-14 20:05 | PD.PPDC ---
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
--- NOTE | 2016-12-14 20:07 | DS ---
Date/Time of Note Date/Time of Note DATE: 12/14/16 TIME: 20:06 Obstetrical Discharge Record Final Diagnosis Final Diagnosis: Term delivered Section Section: Repeat Complications Augmentation: No Induction: No Rupture of Membranes: No Condition on Discharge Physical Assessment Last Vitals: vss afebrile Voiding: Yes Bowel Movement: Yes Breast: Soft, non-tender Fundus: Firm Abdomen and Incision: soft wound dry Calf Tenderness: No Patient Condition: Stable DANTE JENNINGS MD Dec 14, 2016 20:07
== END 2016-12-14 21:20 | disposition home or self-care (01) | DRG 766 ==
LOC: L-D 10:50 → PP1 18:02
PROVIDERS: ADMIT Obstetrics & Gynecology; ATTEND Obstetrics & Gynecology
PROC: 0UL70ZZ Occlusion of Bilateral Fallopian Tubes, Open Approach (ICD-10-PCS; 2016-12-11)
PROC: 3E033VJ Introduction of Other Hormone into Peripheral Vein, Percutaneous Approach (ICD-10-PCS; 2016-12-11)
PROC: 10D00Z1 Extraction of Products of Conception, Low, Open Approach (ICD-10-PCS; principal; 2016-12-11 12:30)
DX: O34.211 Maternal care for low transverse scar from previous cesarean delivery (principal); Z87.891 Personal history of nicotine dependence; Z30.2 Encounter for sterilization; Z37.0 Single live birth; Z3A.39 39 weeks gestation of pregnancy
CPT/HCPCS: 85025; 85610; 85730; 86592; 86850; 86900; 86901; 88302; 90715; 99464; J0690; J1100; J1885; J2274; J2370; J2405; J2590; J2765; J3010; J7120

== ENCOUNTER 2017-11-25 22:49 | Emergency (ER) | END 2017-11-26 01:59 | disposition home or self-care (01) ==

== ENCOUNTER 2017-12-24 10:23 | Emergency (ER) | END 2017-12-24 13:13 | disposition home or self-care (01) ==

== ENCOUNTER 2017-12-26 08:19 | Emergency (ER) | END 2017-12-26 09:14 | disposition home or self-care (01) ==